=== PATIENT | female | born 1945 | race Caucasian/White ===

== ENCOUNTER → 2017-11-17 11:18 | Outpatient (CLI) | payer MEDICARE, OTHER, SELFPAY ==
--- NOTE | 2017-11-17 11:31 | EKG12_ITS ---
Test Reason : PREOP Blood Pressure : / mmHG Vent. Rate : 081 BPM Atrial Rate : 081 BPM P-R Int : 126 ms QRS Dur : 082 ms QT Int : 378 ms P-R-T Axes : 026 035 023 degrees QTc Int : 439 ms Normal sinus rhythm Normal ECG Confirmed by TRISHA ALMAZAN, ROGELIO ([id number]), editor magazine EDDA ORTIZ ([id number]) on 11/19/2017 12:51:20 PM Referred By: Didi Cali Confirmed By:ROGELIO RICO MD
[2017-11-17 11:49] LABS: Hematocrit 39.3 % (37-47); Hemoglobin 13.5 g/dl (12.0-15.0); Mean Corp Hgb Conc 34.4 g/gl (32-36); Mean Corpuscular Volume 93.1 fL (81-99); Mean Platelet Vol. 8.9 fl (6.2-12.0); Platelet Count 264 K/mm3 (150-450); RBC Distribution Width CV 12.8 % (11.6-14.6); RBC Distribution Width SD 42.2 fl (35.1-43.9); Red Blood Count 4.22 M/mm3 (4.2-5.4); White Blood Count 9.5 K/mm3 (4.4-11.0)
[2017-11-17 11:52] LABS: Scan Indicated on CBC? Y/N NO
[2017-11-17 12:08] LABS: Anion Gap 8 (5-15); BUN 24 mg/dL (7-18); BUN/Creat Ratio 30.8 RATIO (10-20); Calcium,Total 9.4 mg/dL (8.5-10.1); Chloride 105 mmol/L (98-107); Creatinine, Serum 0.78 mg/dL (0.55-1.02); EST Glomerular Filtration Rate 77 mL/min (>60); Est Glom Filt Rate - Afr Amer 93 mL/min (>60); Glucose 90 mg/dL (74-106); Potassium 4.2 mmol/L (3.5-5.1); Sodium Level 139 mmol/L (136-145)
== END ==
PROVIDERS: Family Provider Family Medicine; PCP Family Medicine; Visit Provider Physician Assistant
DX: Z01.810 Encounter for preprocedural cardiovascular examination (principal); Z01.818 Encounter for other preprocedural examination; I10 Essential (primary) hypertension
CPT/HCPCS: 36415; 80048; 85027; 93005

== ENCOUNTER 2017-12-30 17:22 | Emergency (ER) | payer MEDICARE, OTHER, SELFPAY ==
[2017-12-30 17:23] VITALS: BP 161/78; PULSE 91; RESP 16; TEMP 36.7; O2SAT 96; BMI 33.3
--- NOTE | 2017-12-30 17:37 | CT_ITS ---
STUDY: CT BRAIN WITHOUT CONTRAST REASON FOR EXAM: Female, 72 years old. Fall. RADIATION DOSAGE (If Supplied By Facility): CTDIvol = ( 44.99 ) mGy, DLP = ( 779.24 ) mGycm TECHNIQUE: Transaxial CT imaging of the brain was performed without administration of intravenous contrast material. Individualized dose optimization techniques were used for this CT. COMPARISON: None. FINDINGS: There is no acute bleed or infarct. There are normal white matter tracts. The ventricles are normal in configuration. There is no hydrocephalus. The visualized paranasal sinuses are clear. The mastoid air cells are well aerated. There is no skull fracture. There is a scalp laceration in the posterior parietal region with an associated 4 x 2 cm hematoma in the scalp. CT/Brain/Head without Contrast IMPRESSION: No acute intracranial abnormality. Scalp laceration in the posterior parietal region with an associated 4 x 2 cm scalp hematoma. Electronically Signed: Danny Shields, at 18:35 EDT Tel , Service support ,
--- NOTE | 2017-12-30 17:37 | CT_ITS ---
STUDY: CT CERVICAL SPINE WITHOUT CONTRAST REASON FOR EXAM: Female, 72 years old. Fall RADIATION DOSAGE (If Supplied By Facility): CTDIvol = ( 28.35 ) mGy, DLP = ( 571.66 ) mGycm TECHNIQUE: High resolution transaxial imaging was performed without contrast material. Sagittal and coronal images were reconstructed. Individualized dose optimization techniques were used for this CT. COMPARISON: None available. FINDINGS: There is no evidence of fracture or dislocation in the cervical spine. The dens is intact. Alignment is normal. There are mild degenerative changes with disc space narrowing and small osteophytes. The visualized paraspinal soft tissues are within normal limits. CT/Spine Cervical without Contras IMPRESSION: No fracture or dislocation in the cervical spine. Mild degenerative changes. Electronically Signed: Danny Shields, at 18:40 EDT Tel , Service support ,
--- NOTE | 2017-12-30 17:38 | RAD_ITS ---
STUDY: X-RAY - RIGHT SHOULDER REASON FOR EXAM: Female, 72 years old. Fall TECHNIQUE: 2 view(s) of the shoulder. COMPARISON: None. FINDINGS: There is no evidence of fracture or dislocation. There are moderate degenerative changes. There are no radiodense foreign bodies. RAD/Shoulder min 2 Views IMPRESSION: No fracture or dislocation. Moderate degenerative changes. Electronically Signed: Danny Shields, at 19:17 EDT Tel , Service support ,
--- NOTE | 2017-12-30 17:41 | ED.DCSUM_ITS ---
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 Physical Examination: [] Exam she has an obvious scalp laceration to the occipital part of her head is full thickness measures about 8 cm, she is awake and alert communicating to us via her sign language and facial expressions her neck is minimally tender her anterior neck is normal she can is vague pain to the shoulder on the right diffusely her heart tones are normal abdomen soft nontender claims of vague left hip pain she has full range of motion of lower extremities full range of motion left upper extremity, there is no complaints of back pain there was no LOC by history obtained from EMS Test Results: [] Emergency Department Course and Treatment: [] Is time given all the above head CT cervical spine CT x-rays morphine Laceration underwent sterile prep copious irrigation we did trim some of the hair she had a large gaping laceration about 8 cm, it was completely irrigated all blood clot and debris were removed and then bleeding was controlled with lidocaine epinephrine and then it was closed with nylon with good results there is no further bleeding compression dressing applied The patient's head CT and neck CT showed nothing acute the left hip x-ray showed questionable inferior pubic ramus fracture recommend CT, the CT showed nothing acute on reevaluation she is awake alert Treatment Plan: [] On reevaluation she remains awake alert conversant she states she feels better via foreclosure home inspector daughter is in the room they are comfortable discharge home, the rest of her plain films did not show anything acute instructed on head injury sutures out in 7-10 days orthopedic type instructions related to the multiple areas of contusion and the need to operate walking stairs etc. related to the fact she has not large splint to the right upper extremity she is return referred to Dr. lm Cuadra plastic surgery for wound care Disposition: [] Impression: [] 8 cm scalp laceration, head injury, fall, recent right rotator cuff surgery deafness This note was generated with [employer] software. It may contain incorrect words, spelling, and punctuation that were not noted in review of the chart prior to signing ED Disposition - Plan for ED Patient: Chief Complaint: Fall Referrals: Bernard Mccoy DO [Primary Care Provider] -
[2017-12-30] MEDS: Ondansetron ODT 4 MG Tablet PO ×2 (18:05→21:48)
[2017-12-30] MEDS: morphine 8 MG/ML Syringe SC (18:05)
--- NOTE | 2017-12-30 18:20 | RAD_ITS ---
STUDY: X-RAY - PELVIS AND LEFT HIP REASON FOR EXAM: Female, 72 years old. Fall TECHNIQUE: Radiological exam, hip, unilateral, with pelvis when performed; 2 or 3 views. COMPARISON: 01/03/2017 FINDINGS: There is a cortical irregularity in the left inferior pubic ramus. Further evaluation with CT is recommended. The remainder of the visualized osseous structures are intact. There are mild degenerative changes in the hips. RAD/Hip 2-3 Views with Pelvis IMPRESSION: Cortical irregularity in the left inferior pubic ramus. Further evaluation with CT is recommended. The remainder of the visualized osseous structures are intact. Electronically Signed: Danny Shields, at 19:22 EDT Tel , Service support ,
--- NOTE | 2017-12-30 19:45 | CT_ITS ---
STUDY: CT ABDOMEN AND PELVIS WITHOUT CONTRAST REASON FOR EXAM: Female, 72 years old. Fall. Question pelvic fracture. RADIATION DOSAGE (If Supplied By Facility): CTDIvol = ( 15.36 ) mGy, DLP = ( 767.53 ) mGycm TECHNIQUE: Transaxial images were obtained from the dome of the diaphragm to the symphysis pubis without oral contrast, and without intravenous contrast. Sagittal and coronal images were reconstructed. Individualized dose optimization techniques were used for this CT. COMPARISON: None. FINDINGS: Evaluation of the abdominal viscera is limited in the absence of intravenous contrast. Additionally, streak artifact due to the patient's arms being at her sides further limits evaluation. There is atelectasis at the lung bases. The visualized portions of the heart and pericardium are within normal limits. There are no calcified gallstones present. The liver demonstrates an unremarkable unenhanced appearance. The spleen is normal in size. The pancreas demonstrates an unremarkable unenhanced appearance. The adrenal glands are within normal limits. There are no obstructing renal stones. There is no hydronephrosis. Normal visualized stomach. There is no bowel obstruction or inflammation. The appendix is visualized and appears normal. The aorta is normal in caliber. There is no abdominal or pelvic free air, free fluid, fluid collection or lymphadenopathy. The visualized osseous structures are intact. There is no pelvic fracture to correspond to the questioned abnormality on the recent radiograph. CT/Abdomen/Pelvis without Cont IMPRESSION: No acute abdominal or pelvic pathology demonstrated on this noncontrast CT. Electronically Signed: Danny Shields, at 21:12 EDT Tel , Service support ,
[2017-12-30] MEDS: morphine 8 MG/ML Syringe IV (19:55)
--- NOTE | 2017-12-30 21:30 | ED.DEP ---
ED Disposition - Plan for ED Patient: Chief Complaint: Fall Instructions: ED Mechanical Fall, ED Laceration All, ED Contusion Scalp, ED Head Injury Closed Referrals: Bernard Mccoy DO [Primary Care Provider] - Michael Brown MD [STAFF PHYSICIAN] -
== END 2017-12-30 22:00 | disposition home or self-care (01) ==
PROVIDERS: Emergency Provider Emergency Medicine; Family Provider Family Medicine; PCP Family Medicine
DX: S01.01XA Laceration without foreign body of scalp, initial encounter (principal); S09.90XA Unspecified injury of head, initial encounter; Z98.890 Other specified postprocedural states; H91.93 Unspecified hearing loss, bilateral; S79.912A Unspecified injury of left hip, initial encounter; W19.XXXA Unspecified fall, initial encounter; Y93.9 Activity, unspecified; Y92.9 Unspecified place or not applicable; Z79.899 Other long term (current) drug therapy
CPT/HCPCS: 12034; 70450; 72125; 73030; 73502; 74176; 96372; 96374; 99284; A4216

== ENCOUNTER 2018-01-11 09:49 | Emergency (ER) | payer MEDICARE, OTHER, SELFPAY ==
[2018-01-11 09:51] VITALS: BP 159/84; PULSE 105; RESP 18; TEMP 37.1; O2SAT 98; BMI 33.3
--- NOTE | 2018-01-11 10:39 | ED.VISSUMM ---
- ER Visit Summary Date of Service: 01/11/18 Chief Complaint: Scalp bleeding History of Present Illness: The patient is a 72 F presenting with mild scalp bleeding. Patient was seen in the emergency room after a fall on December 30. She had stitches placed in her scalp at that time. These were removed a week later by her primary care physician. She still has a scab to the area and has mild intermittent oozing. When she rubs her head against the pillow she will have a very small amount of blood. She denies headache, vomiting, other complaints. Patient is deaf and history was obtained through writing. Physical Examination: Vitals are stable. Patient is afebrile. Alert no acute distress. HEENT exam is unremarkable. Scalp scab, healing. No active bleeding. Neck is nontender Lungs are clear and equal bilaterally. Heart is regular rate and rhythm. Extremities are unremarkable. Skin is warm and dry. No focal neurologic deficit. Remainder of exam is unremarkable. Emergency Department Course and Treatment: Bacitracin was applied per patient's request. Advised wound care instructions. Advised follow-up with primary care physician. Advised return ED if worsening complaints. Disposition: Discharge home Impression: Scalp wound, healing This note was generated with [employer] dictation software. It may contain incorrect words, spelling, and punctuation that were not noted in review of the chart prior to signing ED Disposition - Plan for ED Patient: Chief Complaint: Head Injury Referrals: Bernard Mccoy DO [Primary Care Provider] -
--- NOTE | 2018-01-11 10:42 | ED.DEP ---
ED Disposition - Plan for ED Patient: Chief Complaint: Head Injury Instructions: ED Contusion Scalp Referrals: Bernard Mccoy DO [Primary Care Provider] -
[2018-01-11] MEDS: BACITRACIN 15 GM Tube 1 APPLIC TOPICAL (11:10)
== END 2018-01-11 11:34 | disposition home or self-care (01) ==
LOC: ED 10:41
PROVIDERS: Emergency Provider Emergency Medicine; Family Provider Family Medicine; PCP Family Medicine
DX: S01.01XA Laceration without foreign body of scalp, initial encounter (principal); W19.XXXA Unspecified fall, initial encounter; Y93.9 Activity, unspecified; Y92.9 Unspecified place or not applicable; Z79.899 Other long term (current) drug therapy
CPT/HCPCS: 99283

== ENCOUNTER → 2018-01-24 16:27 | Outpatient (CLI) | payer MEDICARE, OTHER, SELFPAY ==
--- NOTE | 2018-01-24 16:27 | DT_ITS ---
This patient was seen during an EMR downtime January 17, 2018 - January 24, 2018. This patient may have a combination of paper and electronic documentation or all paper documentation. All documentation is viewable within the e-chart portion of [employer] for each patient visit.
== END ==
PROVIDERS: Family Provider Family Medicine; PCP Family Medicine; Visit Provider Family Medicine
DX: S01.01XS Laceration without foreign body of scalp, sequela (principal)
CPT/HCPCS: 87070; 87077; 87186; 87205

== ENCOUNTER → 2018-11-16 14:37 | Outpatient (CLI) | payer MEDICARE, OTHER, SELFPAY ==
--- NOTE | 2018-11-16 14:55 | EKG12_ITS ---
Test Reason : RI-OP Blood Pressure : / mmHG Vent. Rate : 080 BPM Atrial Rate : 080 BPM P-R Int : 128 ms QRS Dur : 080 ms QT Int : 380 ms P-R-T Axes : 041 030 023 degrees QTc Int : 438 ms Normal sinus rhythm Normal ECG Confirmed by TRISHA ALMAZAN, ROGELIO ([id number]), makeup editor FRANK VILLALTA ([id number]) on 11/18/2018 10:57:10 AM Referred By: Didi Cali Confirmed By:ROGELIO RICO MD
[2018-11-16 17:28] LABS: Hematocrit 37.5 % (37-47); Hemoglobin 12.7 g/dl (12.0-15.0); Mean Corp Hgb Conc 33.9 g/gl (32-36); Mean Corpuscular Hgb 32.1 pg (27.0-32.0); Mean Corpuscular Volume 94.7 fL (81-99); Mean Platelet Vol. 9.8 fl (6.2-12.0); Platelet Count 268 K/mm3 (150-450); RBC Distribution Width CV 12.7 % (11.6-14.6); RBC Distribution Width SD 42.5 fl (35.1-43.9); Red Blood Count 3.96 M/mm3 (4.2-5.4); White Blood Count 12.1 K/mm3 (4.4-11.0)
[2018-11-16 17:59] LABS: Scan Indicated on CBC? Y/N NO
[2018-11-16 18:00] LABS: Anion Gap 5 (5-15); BUN 25 mg/dL (7-18); BUN/Creat Ratio 29.3 RATIO (10-20); Calcium,Total 9.4 mg/dL (8.5-10.1); Chloride 108 mmol/L (98-107); Creatinine, Serum 0.85 mg/dL (0.55-1.02); EST Glomerular Filtration Rate 69 mL/min (>60); Est Glom Filt Rate - Afr Amer 84 mL/min (>60); Glucose 72 mg/dL (74-106); Potassium 4.6 mmol/L (3.5-5.1); Sodium Level 138 mmol/L (136-145)
== END ==
PROVIDERS: Family Provider Family Medicine; PCP Family Medicine; Referring Provider Physician Assistant; Visit Provider Physician Assistant
DX: Z01.810 Encounter for preprocedural cardiovascular examination (principal); I10 Essential (primary) hypertension
CPT/HCPCS: 36415; 80048; 85027; 93005

== ENCOUNTER → 2018-12-07 | Outpatient (CLI) | payer MEDICARE, SELFPAY ==
--- NOTE | 2018-12-07 | GANG_PTH ---
PATIENT: ELIANA MARIEE LOC: [facility] U#:[id number] AGE/SX: 73/F ROOM: RE12/07/[address]: Dr. Krish Garza MD : [id number] BED: DIS: 12/07/2018 SPEC #: [id number] RECD: 12/07/18 15:26 STATUS: JOSE STEPHEN #: [id number] SINDY: 12/07/18 00:[address]: Krish Garza DEPT: SURGICAL PATHOLOGY RECD BY: Michael Emery ENTERED: 12/08/18 08:57 SP TYPE: GANGLION OTHR DR: Dr. Bernard Mccoy, [facility] Tissues: GANGLION CYST Procedures: Surgery Specimen Level III HEADER OPERATION: Left wrist ganglion cyst excision, left trigger thumb release PRE-OP DIAGNOSIS: Left wrist volar ganglion cyst, symptomatic trigger finger, left thumb TISSUE SUBMITTED: Left volar wrist mass, probable ganglion cyst MICROSCOPIC DIAGNOSIS Left volar wrist mass, excision: A piece of dense fibroconnective tissue with focal changes consistent with ganglion cyst and reactive changes. JULIETA:katty 12/09/18 COMMENT Case has been reviewed in consultation with Dr. Bishop who concurs with the above diagnosis. IDC:AM MICROSCOPIC DESCRIPTION Slides are reviewed. GROSS DESCRIPTION Received is one container labeled with the patient's name and not further designated. The specimen consists of a piece of busch, indurated tissue measuring 2 x 1 x 0.3 cm. The specimen is bisected and submitted entirely in one cassette. / JULIETA:katty 12/08/18 TC:5 CPT: 43095
== END | disposition home or self-care (01) ==
LOC: LABSPEC 16:03
PROVIDERS: Family Provider Family Medicine; PCP Family Medicine; Referring Provider Orthopaedic Surgery; Visit Provider Orthopaedic Surgery
DX: M67.432 Ganglion, left wrist (principal); M65.312 Trigger thumb, left thumb
CPT/HCPCS: 88304